=== PATIENT | female | born 1975 | race Two or more races ===

== ENCOUNTER → 2021-06-22 | Emergency (ER) | payer OTHER ==
[~2021-06-22] VITALS: Ht 154.9 cm; Wt 92.1 kg
== END | disposition left against medical advice (07) ==
LOC: ER 18:51
DX: J30.9 Allergic rhinitis, unspecified (principal); Z20.822 Contact with and (suspected) exposure to COVID-19

== ENCOUNTER 2021-07-30 11:01 | Emergency (ER) | payer OTHER ==
[~2021-07-30] VITALS: Ht 154.9 cm; Wt 92.1 kg
[2021-07-30] MEDS ORDERED: CLONAZEPAM1 M1 PO (12:14)
[2021-07-30] MEDS ORDERED: PROZAC20 MG PO (12:14)
== END 2021-07-30 16:02 | disposition home or self-care (01) ==
LOC: ER 11:01
DX: U07.1 COVID-19 (principal); B34.9 Viral infection, unspecified; D64.9 Anemia, unspecified

== ENCOUNTER 2021-08-03 09:20 | Outpatient (CLI) | payer OTHER ==
[~2021-08-03 09:20] MED LIST: CLONAZEPAM1 M1 PO; PROZAC20 MG PO
== END 2021-08-03 09:45 | disposition home or self-care (01) ==
LOC: ASH CLINIC 09:20
PROVIDERS: ATTEND General Practice
DX: U07.1 COVID-19 (principal)